=== PATIENT | male | born 1960 | race Caucasian/White ===

== ENCOUNTER 2022-03-27 12:27 | Emergency (ER) | payer BC, SELFPAY ==
[2022-03-27 12:29] VITALS: BP 146/62; PULSE 86; RESP 16; TEMP 36.4; O2SAT 96; BMI 23.7
--- NOTE | 2022-03-27 12:45 | XR_ITS ---
WS: [id number] Exam: XR hand LT min 3V* [id number] Date/Time of Exam: 03/27/2022 12:47 PM Reason For Exam: saw injury to index finger No acute fracture or dislocation. There is soft tissue injury and edema of the index finger. There ar e several tiny opaque densities in the lateral soft tissues of the mid index finger that may represen t foreign bodies. No other injury identified. Degenerative change at the CMC joint of the thumb and t he IP joints. XR/XR hand LT min 3V* [id number] IMPRESSION: 1. Extensive soft tissue injury involving the index finger and possible tiny so ft tissue foreign bodies as noted above. No bony injury.
--- NOTE | 2022-03-27 12:51 | ED_ITS ---
HPI - Wound/Laceration General: Chief Complaint: Wound/Laceration Stated Complaint: left index finger lac Time Seen by Provider: 03/27/22 12:50 History of Present Illness: Patient is a 61-year-old male who comes in the ED with injury to left index finger. Injury occurred just prior to arrival. He states that he was working with his saw and accidentally cut lateral base of index finger. He then wrapped his finger on a tile and came here to the ED. He has full range of motion in finger and states his pain has been mild. Patient is up-to-date on his tetanus. Associated symptoms: Denies chills, fever(s), nausea or vomiting Review of Systems Const: Denies: fever(s), chills or fatigue Eyes: Denies: change in vision or eye discomfort ENMT: Denies: throat pain, odynophagia, nasal discharge or nasal congestion Card: Denies: chest pain, palpitations, edema, swelling of feet/ankles, dyspnea on exertion or orthopnea Resp: Denies: dyspnea, productive cough or non-productive cough GI: Denies: abdominal pain, nausea, vomiting, diarrhea, constipation or hematochezia : Denies: flank pain, difficulty urinating, dysuria or hematuria Musc: Reports: extremity pain (Left index finger); Denies: neck pain, back pain or extremity swelling Skin/Breast: Reports: new lesions (Left index finger-large laceration.); Denies: rash Neuro: Denies: headache(s), numbness in extremities or weakness in extremities [facility] ED PFSH: Medical History No pertinent family history No pertinent past medical history Physical Exam Const: COMMON NORMALS: no acute distress, patient oriented x3, healthy appearing and alert GENERAL APPEARANCE: cooperative and comfortable HENMT: COMMON NORMALS: normocephalic HEAD & SCALP: normocephalic MOUTH: Normal oral and palatal mucosa present THROAT: posterior oropharynx normal and uvula midline Neck/C-Spine: COMMON NORMALS: supple GENERAL: Yes normal visual inspection Resp: COMMON NORMALS: normal respiratory effort, No retractions, No use of accessory muscles and clear to auscultation bilaterally AUSCULTATION: clear to auscultation bilaterally Cardio: COMMON NORMALS: regular rate, regular rhythm, S1 normal heart sound present, S2 normal heart sound present, No gallops present (Cardio), No clicks present (Cardio), No murmurs present (Cardio) and Peripheral pulses 2+ throughout RATE: regular rate RHYTHM: regular rhythm HEART SOUNDS: S1 normal heart sound present and S2 normal heart sound present PERIPHERAL PULSES: Peripheral pulses 2+ throughout GI: COMMON NORMALS: Normal to inspection, nondistended, normoactive bowel sounds present, Soft to palpation, non-tender and no masses PALPATION: Yes Soft to palpation : COMMON NORMALS: Yes no CVA tenderness BLADDER/KIDNEY EXAM: Yes no CVA tenderness Back/Pelvis: COMMON NORMALS: no CVA tenderness Extremity: NARRATIVE EXTREMITY EXAM: Left hand?index finger?irregular shaped laceration approximately 5 cm at the base of index finger. Minimal active bleeding noted. No nailbed or nail damage noted. Patient has full range of motion in finger and strength in finger 5 out of 5. No concern for tendon laceration at this time. Neuro: COMMON NORMALS: patient oriented x3 SENSORIUM/ORIENTATION: Yes alert GAIT: Yes Normal gait present Skin: GENERAL SKIN EXAM: dry skin Procedures Laceration Laceration 1: Site: hand (left hand index) Side (If applicable): left Size (cm): 5 Description: irregular Depth: simple, single layer Local Anesthetic: lidocaine 1% (Local lidocaine 1% used as well-3 ml) and lidocaine 2% (Digital block-5ml) Amount of anesthesia used (mL): 4 Pre-repair: irrigated extensively (With normal saline and beta iodine) Skin layer closed with: nylon Size (cm): 4-0 Number of sutures: 11 Nerve Block Nerve Block 1: Time out performed: Yes Local Anesthetic: lidocaine 2% Amount of anesthesia used (mL): 5 Side: left Nerve Blocks: digital (Index finger) Procedure Successful: Yes Patient Tolerated Procedure: well Complications: none Course Vital Signs: Vital signs: Vital Signs Temperature 97.6 F 03/27/22 12:29 Pulse Rate 55 L 03/27/22 14:57 Respiratory Rate 20 H 03/27/22 14:57 Blood Pressure 125/81 03/27/22 14:57 Pulse Oximetry 94 03/27/22 14:57 Oxygen Delivery Me thod 03/27/22 12:29 MDM - Wound/Laceration Medical Decision Making Patient is a 61-year-old male that comes to the ED with a laceration to proximal aspect of left index finger due to a saw. Vital stable. Left hand?index finger?irregular shaped laceration approximately 5 cm at the base of index finger. Minimal active bleeding noted. No nailbed or nail damage noted. Patient has full range of motion in finger and strength in finger 5 out of 5. No concern for tendon laceration at this time. Left hand x-ray shows no acute fractures. Lidocaine 2% used as a digital block and then some lidocaine 1% was used as local as well to help with pain control. Finger was irrigated since he with normal saline and beta iodine wash. Then placed 11 sutures to help close up laceration. Triple antibiotic ointment and bandage was applied. I placed an order with case management for patient to have follow-up to check on finger injury due to depth of laceration, but no indicators of tendon laceration were seen. He was given a dose of IM antibiotics here in the ED and was discharged home with a prescription for Keflex and some hydrocodone for pain. Return to ED precautions given. He was instructed on how to care for laceration on finger. Patient understood and agreed with plan. Lab Data Radiology Impressions Hand X-Ray 03/27/22 12:45 IMPRESSION: 1. Extensive soft tissue injury involving the index finger and possible tiny soft tissue foreign bodies as noted above. No bony injury. Discharge Plan Discharge Patient Disposition: Home Clinical Impression: Laceration of finger of left hand Qualifiers: Encounter type: initial encounter Finger: index finger Damage to nail status: without damage Foreign body presence: without foreign body Qualified Code(s): S61.211A - Laceration without foreign body of left index finger without damage to nail, initial encounter Condition: Stable Prescriptions: New cephalexin 500 mg capsule 500 mg PO Q6H 7 Days Qty: 28 0RF Discharge Orders: Discharge ED (Routine); Ordered 03/27/22 Ordered By: Mark Rodriguez Referrals: Jong Zepeda MD [Primary Care Provider] - Discharge Diet: Regular Discharge Activity: Limit activity as instructed Patient Instructions: Finger Laceration (ED) Activity Restrictions/Additional Instructions: Case management should be contacting you to set up an appointment with Ortho for follow-up on finger injury. Take full course of antibiotics as prescribed. Clean daily with soap and water and then apply thin layer of triple antibiotic ointment on it and cover with bandage. Do not submerge hand in any bodies of water until wound is completely healed. Watch for signs of infection such as r edness, warmth, increased tenderness and puslike drainage. If you see the signs of infection return to the ED, urgent care or PCP for reevaluation. call your PCP to schedule a follow-up appointment for reevaluation and suture removal in about 10 days. Continue taking all home meds. Follow discharge plans as discussed. You can return to the ED if symptoms worsen. Coding Level of Care Code ED [employer] for [employer] Jacobsen Exam Comprehensive
[2022-03-27] MEDS: neomycin-poly-bacitracin oint 28 gm 1 APPLIC TOPICAL (14:36)
[2022-03-27] MEDS: cefTRIAXone 1,000 MG in sodium chloride 0.9% (plus) 50 ML 100 MG IV (14:36)
[2022-03-27 14:57] VITALS: BP 125/81; PULSE 55; RESP 20; O2SAT 94
--- NOTE | 2022-03-28 09:18 | DCPLANNER ---
Addendum entered by Mckenzie Douglass 04/25/22 13:29: Patient did not attend appointment scheduled with ortho Addendum entered by Mckenzie Douglass 04/02/22 14:03: Patient has a follow up appointment scheduled for Friday, April 03, 2022 at 9:45 with Jose Angel at ortho. Clinic will call patient with appointment information. Original Note: assurance manager insurance had message to schedule a follow up appointment for patient with ortho. assurance manager insurance sent patients information to the front office staff at ortho. Patients information will be printed and reviewed. Clinic will call patient with appointment information.
== END 2022-03-27 14:59 | disposition home or self-care (01) ==
PROVIDERS: Emergency Provider Physician Assistant; PCP Family Medicine
DX: S61.211A Laceration without foreign body of left index finger without damage to nail, initial encounter (principal); W27.0XXA Contact with workbench tool, initial encounter
CPT/HCPCS: 73130; 96374; 99284; J0696